=== PATIENT | female | born 1960 | race American Indian/Alaskan Native ===

== ENCOUNTER 2020-09-13 12:09 | Emergency (ER) | payer SELFPAY ==
[2020-09-13 12:26] VITALS: BP 135/75
== END 2020-09-13 17:48 | disposition home or self-care (01) ==
LOC: ED 12:09
DX: M79.604 Pain in right leg (principal); I10 Essential (primary) hypertension; Z98.890 Other specified postprocedural states
CPT/HCPCS: 99283